=== PATIENT | female | born 1995 | race Caucasian/White ===

== ENCOUNTER 2020-09-11 18:35 | Emergency (ER) | payer BC, SELFPAY ==
[2020-09-11 18:42] VITALS: BP 133/81; PULSE 70; RESP 17; TEMP 37.1; O2SAT 99
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
[2020-09-11] MEDS: Acetaminophen 500 MG TAB 1000 MG PO (19:14)
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
== END 2020-09-11 20:25 | disposition home or self-care (01) ==
PROVIDERS: Emergency Provider Emergency Medicine
DX: S09.8XXA Other specified injuries of head, initial encounter (principal); V47.5XXA Car driver injured in collision with fixed or stationary object in traffic accident, initial encounter
CPT/HCPCS: 99284; 70450; 71046; 72125; 99283